=== PATIENT | male | born 1930 | race Caucasian/White ===

== ENCOUNTER 2016-05-16 22:41 | Emergency (ER) | payer MEDICARE, BC ==
--- NOTE | 2016-05-23 14:34 | ER ---
ADMIT: 05/16/2016 RM/LOC: ER [facility] MR#: [id number] [id number] [place] [address] Emergency Room Report SEX: M AGE: 85 : 1930 DATE: 05/16/2016 ADDENDUM: [facility] SUBJECTIVE: This patient comes into the ER because his 18-[place] catheter came out. He has dementia. His abdomen was soft. The nurse replaced the suprapubic catheter. Please see my T sheet. DEBBIE Gonzalez / Minesh Mann MD / pedritol JOB #: [id number] CC: Minesh Mann MD, Attending Physician Sherwin Burger MD, Family Physician
== END 2016-05-17 02:32 | disposition home or self-care (01) ==
LOC: ER 22:41
PROC: 0T9B70Z Drainage of Bladder with Drainage Device, Via Natural or Artificial Opening (ICD-10-PCS; principal; 2016-05-16)
DX: Z46.6 Encounter for fitting and adjustment of urinary device (principal); I10 Essential (primary) hypertension; Z88.0 Allergy status to penicillin; Z88.8 Allergy status to other drugs, medicaments and biological substances